=== PATIENT | male | born 1990 | race Caucasian/White ===

== ENCOUNTER → 2018-06-19 | Outpatient (CLI) | payer OTHER ==
[~2018-06-19] MED LIST: MULT-506 PO
[2018-06-19 19:00] LABS: HEMATOCRIT 42.9 % (42-52); HEMOGLOBIN 14.6 g/dL (14.0-18.0); MEAN CELL VOLUME 88.3 fL (80-100); MEAN PLATELET VOLUME 10.5 fL (7.4-10.4); PLATELET COUNT 136 K/uL (130-400); RED CELL DISTRIBUTION WIDTH CV 12.4 % (11.5-14.5); RED CELL DISTRIBUTION WIDTH SD 39.8 fL (36.4-46.3); WHITE BLOOD COUNT 2.26 K/uL (4.8-10.8)
[2018-06-19 20:09] LABS: BASO % 0.4 %; BASO ABS # 0.01 K/uL (0-0.2); EOS % 1.3 %; EOS ABS # 0.03 K/uL (0-0.5); LYMPH ABS # 1.22 K/uL (1.2-3.4); MONO % 8.8 %; NEUT % 35.5 %
[2018-06-21 13:26] LABS: EBV EARLY ANTIGEN AB < 9.00 U/ML
== END | disposition home or self-care (01) ==
LOC: C.LABMFLN 14:22
PROVIDERS: ATTEND Family Medicine
DX: R21 Rash and other nonspecific skin eruption (principal); A69.20 Lyme disease, unspecified